=== PATIENT | female | born 1990 | race Caucasian/White ===

== ENCOUNTER 2018-05-02 12:01 | Inpatient (IN) | payer OTHER ==
[2018-05-02] MEDS ORDERED: NORCO 5/325 PO PRN (18:31)
[2018-05-02] MEDS ORDERED: PHENERGAN PR PRN (18:31)
[2018-05-02] MEDS ORDERED: TORADOL IV PRN (18:31)
[2018-05-02] MEDS ORDERED: TUCKS PAD TP PRN (18:31)
[2018-05-02] MEDS ORDERED: TYLENOL PO PRN (18:31)
[2018-05-02] MEDS ORDERED: BENADRYL PO PRN (18:31)
[2018-05-02] MEDS ORDERED: PERCOCET 5/325 PO PRN (18:31)
[2018-05-02] MEDS ORDERED: ZOFRAN IV PRN (18:31)
[2018-05-02] MEDS ORDERED: DULCOLAX PR PRN (18:31)
--- NOTE | 2018-05-02 18:46 | History and Physical Report ---
History of Present Illness Date of examination: 05/02/18 Date of admission: 05/02/18 18:29 Chief complaint: vaginal bleeding and History of present illness: This is a 28 yo LMP 01/29/18 was seen in our Practice at 8 weeks and had US on showing a demise at 8 weeks. Over the weekend she sustained heavy vaginal bleeding and un-consciousness and EMT transferred patient to the [facility] on 04/30/18 in which she stayed for 7 hrs and per the patient and "everything was out" and " nothing further for them to do" " f/u with OB". She came to office today with f/u complaining of abdominal pain and continued to bleed. Speculum exam revealed a softball size tissue with few small quartger size clots. OS open. She was sent for direct admit for observation to obtain US, labs, IVF and close monitoring. 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 denies: smoking, alcohol abuse, prescription drug abuse - Obstetrical History Expected Date of Delivery: 11/05/18 Actual Gestation: 13 Week(s) 2 Day(s) : 2 Para: 1 Hx # Term Pregnancies: 1 Number of Pregnancies: 0 Spontaneous Abortions: 1 Induced : 0 Number of Living Children: 1 Medications and Allergies Allergies Allergy/AdvReac Type Severity Reaction Status Date / Time No Known Allergies Allergy Verified 11/26/13 08:49 Home Medications Medication Instructions Recorded Confirmed Last Taken Type Pnv95/Ferrous Fumarate/FA 1 tab PO DAILY 11/26/13 11/26/13 11/25/13 13:00 History [ Multivitamins Tablet] 1 Ibuprofen [Motrin 600 MG tab] 600 mg PO Q6HR #30 tablet 11/27/13 Unknown Rx Review of Systems All systems: negative Genitourinary: vaginal bleeding, pelvic pain - Physical Exam Breasts: Positive: deferred Cardiovascular: Regular rate, Normal S1 Lungs: Positive: Clear to auscultation, Normal air movement Abdomen: Positive: normal appearance, soft. Negative: distention, tenderness, guarding Genitourinary (Female): Positive: normal external genitalia Vulva: both: normal Vagina: Positive: other (derate blood) Uterus: Positive: normal size Anus/Rectum: Positive: normal perianal skin Extremities: Positive: normal Deep Tendon Reflex Grade: Normal +2 Results All other labs normal. Assessment and Plan A/P IUP 8 weeks demise -assess for completeness IVF, labs cbc, type and screen US to assess for completeness Pain meds close maternal f/u NPO ( in case need for surgical intervention)
[2018-05-02] MEDS ORDERED: SODIUM CHLORIDE FLUSH SYRINGE 10 ML IV SCH (19:00)
[2018-05-02] MEDS: MOTRIN PO SCH (20:11)
[2018-05-02] MEDS: METHERGINE PO SCH (20:12)
[2018-05-02] MEDS: PITOCin/NS 20 UNIT/1000ML DRIP 20 UNITS/1,000 ML BAG IV SCH (20:14)
[2018-05-02 20:27] LABS: Hematocrit 25.5 % (30.3-42.9); Hemoglobin 8.7 gm/dl (10.1-14.3); Mean Corpuscular HGB Conc 34 % (30-34); Mean Corpuscular Hemoglobin 31 pg (28-32); Mean Corpuscular Volume 92 fl (79-97); Platelet Count 188 K/mm3 (140-440); Red Blood Count 2.78 M/mm3 (3.65-5.03); Red Cell Distribution Width 13.6 % (13.2-15.2)
--- NOTE | 2018-05-02 20:31 | Ultrasound Report ---
FINAL REPORT PROCEDURE: US OB < = 14 WEEKS FETUS TECHNIQUE: Real-time transabdominal sonography in multiple planes of pelvis was performed with image documentation. This examination was performed without Doppler. Vascular abnormalities, including ovarian torsion, will not be detectable without Doppler evaluation. CPT 87492 HISTORY: missed , vaginal bleeding, abdominal pain COMPARISON: No prior studies are available for comparison. FINDINGS: Uterus is anteverted and measures 11 x 5 x 6 centimeters. Endometrium is thickened and heterogeneous measuring 18 millimeters in maximal thickness. There is no evidence of any intrauterine gestational sac at the present time. Small amount of a fluid is noted in the cervical canal. Bilateral ovaries are normal in size and echotexture. There is no free fluid in the pelvic cavity. Right ovary measures 3.4 x 1.8 x 2.8 centimeters and left ovary measures 3.6 x 1.7 x 1.7 centimeters. IMPRESSION: No evidence of any intrauterine gestational sacs is Thickened heterogeneous endometrial stripe most likely represents retained products of conception. Clinical correlation and follow-up studies are recommended.
--- NOTE | 2018-05-02 20:33 | Ultrasound Report ---
FINAL REPORT PROCEDURE: US OB TRANSVAGINAL TECHNIQUE: Real-time transvaginal sonography of the uterus, placenta, amniotic fluid, adnexa, and fetus was performed with image documentation. Measurements were obtained to determine age/size. M-mode Doppler was used to document heartbeat. CPT 34605 HISTORY: missed , vaginal bleeding, abdominal pain COMPARISON: No prior studies are available for comparison. FINDINGS: Uterus is anteverted and measures 11 x 5 x 6 centimeters. Endometrium is thickened and heterogeneous measuring 18 millimeters in maximal thickness. There is no evidence of any intrauterine gestational sac at the present time. Small amount of a fluid is noted in the cervical canal. Bilateral ovaries are normal in size and echotexture. There is no free fluid in the pelvic cavity. Right ovary measures 3.4 x 1.8 x 2.8 centimeters and left ovary measures 3.6 x 1.7 x 1.7 centimeters. IMPRESSION: No evidence of any intrauterine gestational sac. Thickened heterogeneous endometrial stripe most likely represents retained products of conception. Clinical correlation and follow-up studies are recommended.
[2018-05-02] MEDS ORDERED: SENOKOT S PO SCH (22:00)
[2018-05-03] MEDS: METHERGINE PO SCH ×3 (04:57→22:40)
[2018-05-03] MEDS: PITOCin/NS 20 UNIT/1000ML DRIP 20 UNITS/1,000 ML BAG IV SCH (05:48)
[2018-05-03] MEDS: MOTRIN PO SCH ×2 (06:39→12:00)
--- NOTE | 2018-05-03 08:19 | Progress Note ---
Assessment and Plan A/P IUP 8 weeks demise Incomplete with 18 mm lining hemoglobin drop from 12 to 8 discussed plan will consider d and c for completeness npo case pending today for add on ( >3p per problem manager) discussed r/b/ a of bleeding infection, damage to pelvic and non pelvic organs , risk of anesthesia and Subjective - Subjective Date of service: 05/03/18 Principal diagnosis: incomplete Interval history: This is a 28 yo LMP 01/29/18 was seen in our Practice at 8 weeks and had US on showing a demise at 8 weeks. Over the weekend she sustained heavy vaginal bleeding and un-consciousness and EMT transferred patient to the [facility] on 04/30/18 in which she stayed for 7 hrs and per the patient and "everything was out" and " nothing further for them to do" " f/u with OB". She came to office today with f/u complaining of abdominal pain and continued to bleed. Speculum exam revealed a softball size tissue with few small quartger size clots. OS open. She was sent for direct admit for observation to obtain US, labs, IVF and close monitoring. Patient reports: voiding normally, pain well controlled, flatus, ambulating normally Objective - Vital Signs Latest vital signs: Vital Signs Temp Pulse Resp BP Pulse Ox 05/03/18 04:35 98.9 F 88 18 96/42 97 05/03/18 00:00 98.2 F 94 H 18 102/42 96 05/02/18 19:45 98.7 F 91 H 20 104/44 98 Intake and Output 05/02/18 05/03/18 05/03/18 23:59 07:59 15:59 Intake Total 1120 Output Total 225 200 Balance -225 920 Intake: IV 1000 PITOCin/NS 20 UNIT/1000ML 1000 DRIP 20 units In 1,000 ml @ 250 mls/hr IV DIRECT [facility] Rx#:[id number] Oral 120 Output: Urine 200 200 Void 200 200 Emesis 25 Other: Total, Intake Amount 120 Total, Output Amount 200 200 # Voids Void 1 Weight 61.689 kg - Exam Breasts: Present: deferred Cardiovascular: Present: Regular rate, Normal S1 Lungs: Present: Clear to auscultation, Normal air movement Abdomen: Present: normal appearance, soft, normal bowel sounds. Absent: distention, tenderness, guarding Uterus: Present: normal, firm Extremities: Present: normal Deep Tendon Reflex Grade: Normal +2 - Labs Labs: Abnormal lab results 05/02/18 Range/Units 19:57 RBC 2.78 L (3.65-5.03) M/mm3 Hgb 8.7 L (10.1-14.3) gm/dl Hct 25.5 L (30.3-42.9) %
[2018-05-03] MEDS ORDERED: XYLOCAINE MPF 2% ONE (09:52)
[2018-05-03] MEDS ORDERED: DECADRON ONE (09:52)
[2018-05-03] MEDS ORDERED: DIPRIVAN 10 MG/ML IV ONE (09:52)
[2018-05-03] MEDS: COLACE PO SCH ×2 (10:00→22:40)
[2018-05-03] MEDS ORDERED: PRENATAL VITAMIN PO SCH (10:00)
--- NOTE | 2018-05-03 10:14 | Anesthesia Consultation ---
Anesthesia Consult and Med Hx Date of service: 05/03/18 - Airway Anesthetic Teeth Evaluation: Good ROM Head & Neck: Adequate Mental/Hyoid Distance: Adequate Mallampati Class: Class I Intubation Access Assessment: Good - Pulmonary Exam CTA: Yes - Cardiac Exam Cardiac Exam: No Murmur Anesthetic Concerns: Hx of murmur. None detected during preassessment. - Pre-Operative Health Status ASA Pre-Surgery Classification: ASA1 Proposed Anesthetic Plan: General - Pulmonary Hx Asthma: No COPD: No Hx Pneumonia: No - Cardiovascular System Hx Hypertension: No - Central Nervous System Hx Seizures: No Hx Psychiatric Problems: No - Endocrine Hx Renal Disease: No Hx End Stage Renal Disease: No Hx Hypothyroidism: No Hx Hyperthyroidism: No - Hematic Hx Anemia: No Hx Sickle Cell Disease: No - Other Systems Hx Alcohol Use: No - Additional Comments Anesthesia Medical History Comments: No previous anesthetic. Denies family hx of anesthesia complications. Pt. states that allergy is strictly to prednisone , and not to any other steroids.
--- NOTE | 2018-05-03 10:15 | Anesthesia Day of Surgery ---
Anesthesia Day of Surgery - Day of Surgery Patient Examined: Yes Patient H&P Reviewed: Yes Patient is NPO: Yes
[2018-05-03] MEDS ORDERED: VERSED IV PRN (10:30)
[2018-05-03] MEDS ORDERED: NACL 0.9% 1000 ML 1,000 ML ONE (10:36)
[2018-05-03] MEDS ORDERED: METHERGINE IM ONE (10:53)
[2018-05-03] MEDS ORDERED: NACL 0.9% 1000 ML 1,000 ML IV SCH (11:00)
[2018-05-03] MEDS ORDERED: PEPCID IV NR (11:00)
[2018-05-03] MEDS ORDERED: DILAUDID ONE (11:16)
[2018-05-03] MEDS ORDERED: ZOFRAN ONE (11:18)
--- NOTE | 2018-05-03 11:51 | Operative Report ---
Operative Report Operative Report: DATE OF PROCEDURE: 05/03/18 PREOPERATIVE DIAGNOSES: 1. Approximately 8 weeks demise 2. Incomplete . POSTOPERATIVE DIAGNOSES: 1. Approximately 8 weeks demise 2. Incomplete . PROCEDURE PERFORMED: Suction dilation and curettage. SURGEON: Tiesha Lopez MD ANESTHESIA: General. ESTIMATED BLOOD LOSS: 150 ml COMPLICATIONS: None. SPECIMENS: POCs to pathology for evaluation. DESCRIPTION OF PROCEDURE: The patient was taken to the operating room where she was prepped and draped in the normal sterile fashion in the dorsal lithotomy position. A weighted speculum was placed vaginally. A straight cath prior to the case. A single-tooth tenaculum was placed on the cervix. Cervix was noted to be approximately a little over 1 cm dilated. The uterus, on bimanual examination, felt to be about 8 weeks; . A #8 suction curette was then passed for removal of POCs. Once POCs were removed, a sharp curettage was gently performed circumferentially, and the uterine cry was palpated. One more time a suction curettage was then performed and again no POCs were discernible. The uterus was palpated at approximately six weeks at this point; however, there was still some bleeding from the cervix. pitocin 20 U given. The bleeding was then noted to be very scant and the procedure was finished. Sponge, lap, needle, and instrument counts were correct x2. The patient was taken to PACU awake, extubated, and in good condition
[2018-05-03] MEDS ORDERED: NACL 0.9% IR ONE (12:08)
[2018-05-03 16:09] LABS: Basophils % (Auto) 0.2 % (0.0-1.8); Eosinophils % (Auto) 0.1 % (0.0-4.3); Hemoglobin 7.8 gm/dl (10.1-14.3); Lymphocytes # (Auto) 0.7 K/mm3 (1.2-5.4); Lymphocytes % (Auto) 10.2 % (13.4-35.0); Mean Corpuscular HGB Conc 34 % (30-34); Mean Corpuscular Hemoglobin 32 pg (28-32); Mean Corpuscular Volume 94 fl (79-97); Monocytes # (Auto) 0.1 K/mm3 (0.0-0.8); Monocytes % (Auto) 1.2 % (0.0-7.3); Platelet Count 186 K/mm3 (140-440); Red Blood Count 2.46 M/mm3 (3.65-5.03); Red Cell Distribution Width 13.3 % (13.2-15.2)
[2018-05-03] MEDS ORDERED: NACL 0.9% 500 ML 500 ML IV NR (18:10)
[2018-05-03] MEDS ORDERED: TYLENOL PO ONE (18:27)
[2018-05-03] MEDS ORDERED: BENADRYL PO ONE (18:28)
--- NOTE | 2018-05-03 18:28 | Event Note ---
Date: 05/03/18 Hemoglobin dropped to 7 from a start of 12. Symptomatic with dizziness. Will transfuse 2u prbcs check after 4hr post transfusion
[2018-05-04 06:37] LABS: Hematocrit 31.8 % (30.3-42.9); Hemoglobin 10.8 gm/dl (10.1-14.3)
[2018-05-04] MEDS: MOTRIN PO SCH (06:49)
[2018-05-04] MEDS: METHERGINE PO SCH (06:49)
[2018-05-04 08:14] VITALS: BP 99/51
--- NOTE | 2018-05-04 08:15 | Progress Note ---
Assessment and Plan A/P IUP 8 weeks demise POD1 s/p D and c for incomplete VSS s/p 2 U pRBC hemoglobin drop from 12 to 8 to 10 d/c home with f/u in 1 week Subjective - Subjective Date of service: 05/04/18 Principal diagnosis: incomplete Interval history: This is a 28 yo LMP 01/29/18 was seen in our Practice at 8 weeks and had US on showing a demise at 8 weeks. Over the weekend she sustained heavy vaginal bleeding and un-consciousness and EMT transferred patient to the [facility] on 04/30/18 in which she stayed for 7 hrs and per the patient and "everything was out" and " nothing further for them to do" " f/u with OB". She came to office today with f/u complaining of abdominal pain and continued to bleed. Speculum exam revealed a softball size tissue with few small quartger size clots. OS open. She was sent for direct admit for observation to obtain US, labs, IVF and close monitoring. Patient reports: appetite normal, voiding normally, pain well controlled, flatus , ambulating normally Objective - Vital Signs Latest vital signs: Vital Signs Temp Pulse Resp BP BP Pulse Ox 05/04/18 01:20 98.7 F 67 18 101/55 98 05/04/18 00:50 98.5 F 72 18 92/59 98 05/04/18 00:35 98.1 F 71 20 92/59 05/04/18 00:20 98.9 F 71 18 100/60 98 05/03/18 23:50 98.4 F 80 18 102/53 100 05/03/18 23:19 98.5 F 82 18 93/51 99 05/03/18 23:04 98.5 F 75 18 94/48 100 05/03/18 21:55 98.5 F 65 18 92/49 98 05/03/18 21:25 99 F 70 18 86/40 98 05/03/18 20:55 99 F 71 18 91/42 98 05/03/18 20:25 99.2 F 74 16 82/38 98 05/03/18 19:55 98.6 F 83 16 79/32 98 05/03/18 19:25 99 F 83 18 101/50 99 05/03/18 19:10 98.5 F 85 18 96/52 100 05/03/18 15:33 98.2 F 83 18 104/57 99 05/03/18 12:50 97.9 F 77 14 108/50 100 05/03/18 12:45 99.0 F 76 12 101/50 100 05/03/18 12:15 68 15 99/50 100 05/03/18 12:00 75 13 100/47 100 05/03/18 11:45 82 10 L 95/49 97 05/03/18 11:40 73 8 L 87/40 98 05/03/18 11:35 97.8 F 72 8 L 86/38 98 05/03/18 10:00 99.2 F 84 16 102/48 100 05/03/18 08:38 97.2 F L 84 18 94/58 Intake and Output 05/03/18 05/04/18 05/04/18 23:59 07:59 15:59 Intake Total 250 610 Output Total 800 Balance 250 -190 Intake: Intake, Free Water 360 Blood Product 250 250 Leukoreduced Red Blood 0 250 Cells Unit [id number] Leukoreduced Red Blood 250 Cells Unit [id number] Output: Urine 800 Void 800 Other: Total, Output Amount 800 Voiding Method Toilet - Exam Breasts: Present: normal Cardiovascular: Present: Regular rate, Normal S1 Lungs: Present: Clear to auscultation, Normal air movement Abdomen: Present: normal appearance, soft, normal bowel sounds. Absent: distention, tenderness, guarding Vulva: both: normal Uterus: Present: normal, firm Extremities: Present: normal Deep Tendon Reflex Grade: Normal +2 - Labs Labs: Abnormal lab results 05/02/18 05/03/18 Range/Units 19:57 15:37 RBC 2.46 L (3.65-5.03) M/mm3 Hgb 7.8 L (10.1-14.3) gm/dl Hct 23.0 L (30.3-42.9) % Lymph % (Auto) 10.2 L (13.4-35.0) % Lymph # 0.7 L (1.2-5.4) K/mm3 Seg Neutrophils % 88.3 H (40.0-70.0) % Crossmatch See Detail
--- NOTE | 2018-05-04 08:16 | Discharge Summary ---
Providers - Providers Date of Admission: 05/02/18 18:29 Date of discharge: 05/04/18 Attending physician: MELIZA ROBERSON MD Primary care physician: MASTER DATA ANALYST Hospitalization Reason for admission: other (incomplete ) Other procedures: other (d and c ) Condition at discharge: Good Disposition: DC-01 TO HOME OR SELFCARE Plan - Discharge Medications Prescriptions: Ferrous Sulfate 325 mg PO BID #60 tablet. Ibuprofen [Motrin] 600 mg PO Q8H PRN #30 tablet PRN Reason: Pain oxyCODONE /ACETAMINOPHEN [Percocet 5/325] 1 tab PO Q6HR PRN #30 tablet PRN Reason: Pain - Provider Discharge Summary Activity: routine, no sex for 6 weeks, no strenuous exercise Diet: routine Instructions: routine Additional instructions: [] Smoking cessation referral if applicable(refer to patient education folder for contact #) [] Refer to [facility]'s [facility] Booklet Call your doctor immediately for: * Fever > 100.5 * Heavy vaginal bleeding ( >1 pad per hour) * Severe persistent headache * Shortness of breath * Reddened, hot, painful area to leg or breast * Drainage or odor from incision. * Keep incision clean and dry at all times and follow doctor's instructions regarding bathing/showering - Follow up plan Follow up: PRIMARY CARE, [Primary Care Provider] - 7 Days
== END 2018-05-04 12:02 | disposition home or self-care (01) | DRG 770 ==
LOC: OB 12:01 → UNDOADMOB 17:45 → 3A 17:45 → OB 18:29 → OBSVTOIN 05-04 12:01
PROVIDERS: ADMIT Obstetrics & Gynecology; ATTEND Obstetrics & Gynecology
PROC: 30233N1 Transfusion of Nonautologous Red Blood Cells into Peripheral Vein, Percutaneous Approach (ICD-10-PCS; principal; 2018-05-04)
PROC: 10D17Z9 Manual Extraction of Products of Conception, Retained, Via Natural or Artificial Opening (ICD-10-PCS; 2018-05-04)
DX: O03.4 Incomplete spontaneous abortion without complication (principal); Z88.8 Allergy status to other drugs, medicaments and biological substances
CPT/HCPCS: 36415; 76801; 76817; 85014; 85018; 85025; 85027; 86850; 86900; 86901; 86920; 88305; G0378; G0379; J1100; J1170; J2210; J2250; J2405; J2590; J2704; J7030; J7040; P9016

== ENCOUNTER 2019-06-30 19:29 | Outpatient (CLI) | payer OTHER, MEDICAID ==
[2019-06-30] MEDS ORDERED: VISTARIL PO ONE (21:50)
[2019-06-30] MEDS ORDERED: TYLENOL #3 PO ONE (21:50)
--- NOTE | 2019-06-30 22:03 | Ultrasound Report ---
Limited OB Ultrasound Biophysical profile HISTORY: mild early decelerations. TECHNIQUE: Grayscale and color Doppler imaging performed. COMPARISON: No recent relevant ultrasound is available FINDINGS: Limited ultrasound: There is a single intrauterine gestation which is cephalic in presentation. DOMINICK w as measured at 6.2 which is slightly low. Heart rate is 141 bpm. Placenta is positioned posteriorly. Biophysical profile: The fetus received a score of 2 out of 2 for breathing movement, movement, poste rior/tone, and DOMINICK (1 vertical pocket was greater than 2 cm). Total score was 8 out of 8. IMPRESSION: 1. Single viable intrauterine gestation as above with slightly low DOMINICK. 2. Normal biophysical profile. Signer Name: Richard Hdz MD Signed: 06/30/2019 9:59 PM Workstation Name: [id number]
--- NOTE | 2019-06-30 22:07 | Event Note ---
Date: 06/30/19 S: Pt is a 29 yo at 37.3 weeks EGA who presents with contractions q4 minutes. She denies leakage of fluid or vaginal bleeding. She reports thin vaginal discharge and positive movement. 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
[2019-07-01] VITALS: BP 138/85
== END 2019-06-30 22:30 | disposition home or self-care (01) ==
LOC: TRG 19:29
PROVIDERS: ATTEND Obstetrics & Gynecology
DX: O47.03 False labor before 37 completed weeks of gestation, third trimester (principal); Z3A.37 37 weeks gestation of pregnancy
CPT/HCPCS: 59025; 76815; 76819; Q0177